=== PATIENT | female | born 1965 | race Caucasian/White ===

== ENCOUNTER 2018-07-15 07:42 | Inpatient (IN) ==
[2018-07-15] MEDS ORDERED: Metoprolol Tartrate 25 MG Tablet PO SCH (08:04)
[2018-07-15] MEDS ORDERED: Chlorhexidine Gluconate 2% 1 Pack (2 Cloths) TOPICAL SCH (08:04)
[2018-07-15] MEDS ORDERED: Chlorhexidine 4% Topical 120 APPLIC/120 ML Bottle TOPICAL SCH (08:15)
[2018-07-15] MEDS ORDERED: SODIUM CHLOR 0.9% IV.SIG SCH ×2 (09:00→12:00)
[2018-07-15] MEDS ORDERED: TRANEXAMIC ACID IV.SIG SCH ×2 (09:00→12:00)
[2018-07-15] MEDS ORDERED: Sodium Chlor 0.9% Inj 500 ML IV.SIG SCH (09:00)
[2018-07-15] MEDS ORDERED: Sodium Chlor 0.9% Inj 40 ML, Bupivacaine Liposo PF 1.3% Inj 20 ML P-ARTICULR SCH ×2 (09:00)
[2018-07-15] MEDS ORDERED: Morphine Inj 4 MG/ML Vial IV.PUSH PRN (09:43)
[2018-07-15] MEDS ORDERED: Aluminum/Magnesium/Simethacone Susp 30 ML UDC PO PRN (09:43)
[2018-07-15] MEDS ORDERED: Acetaminophen 325 MG Tablet PO PRN (09:43)
[2018-07-15] MEDS ORDERED: Post-op Orders (for Pharmacy) OTHER STA (09:43)
[2018-07-15] MEDS ORDERED: Tranexamic Acid Inj 0 MG in Sodium Chlor 0.9% Inj 100 ML IV.SIG ONE (09:43)
[2018-07-15] MEDS ORDERED: Bisacodyl 10 MG Supp RECTAL PRN (09:43)
[2018-07-15] MEDS ORDERED: Ketorolac Inj 30 MG/ML (IVP) Vial IV.PUSH SCH (10:00)
[2018-07-15] MEDS ORDERED: Propofol Inj 500 MG/50 ML Vial ONE (10:15)
[2018-07-15] MEDS: Vancomycin Inj 1,000 MG in Sodium Chlor 0.9% Inj 250 ML IV.SIG SCH ×3 (10:16→21:32)
--- NOTE | 2018-07-15 12:45 | P.OP ---
- Preoperative Diagnosis (1) Primary osteoarthritis of right hip - Postoperative Diagnosis (1) Primary osteoarthritis of right hip Date of procedure: 07/15/18 Procedure: Right total hip arthroplasty using [place] prosthesis Anesthesia: local (Exparel), spinal Surgeon: Andre Hodge MD Supervisor Molding: CAPO Morris Estimated blood loss (mL): 300 Pathology: none sent Operation and Findings: Indications and Findings: This 53-year-old woman has had pain in her left hip that has become substantially worse over the past 8 months. This has progressively limited her activities such that she has ambulation tolerance of only about 30 minutes. She has groin pain. She has difficulty abducting the hip with lateral hip pain and giving way. She has not responded to analgesics, anti-inflammatory agents, activity modification, ambulatory aids or exercise. X -rays shows some narrowing with areas of cystic change in the superior aspect of the acetabulum. An MRI shows areas of thickened cystic change in the superior aspect of the acetabulum with areas of loss of articular cartilage particularly in portion of the femoral head. Operative findings: There was tearing of the acetabular labrum anteriorly with a large flap. This was obviously chronic. In addition, there was erosion in the superior aspect of the femoral head to virtually exposed subchondral bone and to a lesser extent the acetabulum. The cystic areas were not encountered. There was good integrity superior acetabular cortex at the time of surgery. Implants: The acetabular component was a 48 mm Trident II cluster shell with a 36 mm inner diameter, 0 degree, X3 polyethylene liner. The femoral component was an Accolade II size 3 x 127 degrees. The femoral head was a 36 mm Biolox Delta ceramic head with -5 mm offset. The patient was brought to the clean air operating suite and a spinal anesthetic was administered. The patient was positioned into a lateral position with the operative hip up on a [employer] lateral positioner. The hip and lower extremity were prepped with alcohol, Hibiclens and ChloraPrep and draped in the usual manner with the hip draped free. Patient received prophylactic antibiotics preoperatively. The patient also received tranexamic acid preoperatively. An appropriate timeout procedure was carried out. An incision was made from the midportion of the greater trochanter proximally and posteriorly paralleling the fibers of the gluteus maribell. The incision was deepened through subcutaneous tissues down to the fascia maren and gluteus fascia. The gluteus fascia was then split longitudinally in line with its fibers up to the upper portion of the fascia maren. With wound towels in place, the Charnley retractor was inserted. The sciatic nerve was identified and protected throughout the procedure. Dissection was then carried down to the interval between the gluteus minimus and the piriformis. A retractor was inserted. The piriformis and obturator conjoined tendon was released from the greater trochanter and reflected off the capsule. A capsulotomy was made longitudinally along the femoral neck to the base of the femoral neck and then curved distally along the posterior aspect of the greater trochanter. The hip was internally rotated. Further release of the external rotators was carried out exposing the hip. The hip was dislocated. The femoral neck was transected at the appropriate level using the oscillating saw placement of appropriate retractors. The femoral head was removed. Preparation of the femur was initiated with a box osteotome followed by a curet to identify the medullary canal. Broaching was then initiated with the size 0 broach and went in 1 size increments up to size 3. The broach handle was removed. The femoral neck was then trimmed with a calcar planar. Attention was then directed to the acetabulum. Soft tissues were debrided from the acetabulum. Retractors were placed about the acetabulum. Reaming was then initiated with the 43 millimeter reamer and went in 1-2 mm increments up to the 48 millimeter diameter reamer. A trial reduction with the 48 millimeter trial prosthesis was carried out. When this was deemed to be appropriate, the trial prosthesis was removed. The acetabulum was irrigated and cleaned. The actual prosthesis as noted above was impacted into place and seated appropriately. A drill hole was made and sounded. An appropriate sized screw was inserted to stabilize the acetabulum further. The liner as noted above was inserted into the acetabular shell and impacted into place. Osteophytes were trimmed from the acetabulum. Local anesthetic was administered throughout the area of the acetabulum and anterior aspect of the femur. The trial neck was placed on the broach for the above-noted prosthesis. The femoral head trial was placed onto the femoral neck . A trial reduction was carried out. Adjustment was made as needed. The stability, leg length and motion were excellent. There was no pistoning. The trial prosthesis was removed. The broach was removed. The femoral component was impacted into the medullary canal of the femur after irrigation and suctioning. When this was appropriately seated a trial reduction was again carried out with the trial prosthesis. There was no pistoning. The leg length was appropriate. The stability and motion were excellent. The trial prosthesis was then removed. After cleaning and drying the trunion of the femoral component, the above-noted femoral head was impacted onto the trunnion. The hip was reduced. The stability and mobility were again checked along with leg lengths as noted above. The hip was positioned appropriately and closure commenced after the remainder of the local anesthetic was injected throughout the hip. The external rotators and capsule were repaired with #1 Vicryl interrupted transosseous sutures with a Krakw technique to reattach the external rotators and capsule to the posterior aspect of the greater trochanter. The capsule itself on the superior aspect was closed with #1 Vicryl interrupted [id number] sutures. The sciatic nerve was inspected. The fascia maren and gluteus fascia were repaired with #1 Vicryl interrupted [id number] sutures. The subcutaneous tissues were closed with 2-0 Vicryl interrupted simple sutures with buried knots. The skin was closed with a continuous subcuticular closure of 4-0 Monocryl. The wound was then approximated with Dermabond Prineo. A silver impregnated dressing was applied to the hip. A knee immobilizer was applied to the leg. The patient was transferred from the operating room to the recovery room in satisfactory condition having tolerated the procedure well. Counts are correct. Specimens: None. Estimated blood loss: 300 milliliters
--- NOTE | 2018-07-15 12:47 | P.DCO ---
- Physical Therapy Physical Therapy: Gait training Hip: Total hip, Protocol: Right, Posterior hip precautions, Progress to weight bearing Canvas Knee Splint: When in bed with 2 pillows between thighs Right Lower Extremity Range of Motion: Active ROM Left Lower Extremity Weight Bearing: Weight bearing as tolerated - Nursing Nursing: Dressing changes Dressing changes: Other (Do not remove Dermabond Prineo (the tape that is directly on the wound).Leave the Optifoam dressing in place for 7 days. After this, daily dressing changes will be done taking care to avoid injuring or removing the Dermabond Prineo.) - Certification Need for Home Health services: I have seen patient Radha Doe on 07/15/18. My clinical findings support the need for the requested home health care services because: Need for Home Health Services: Limited mobility due to disease progression, Limited ability to care for self, High risk of falls Homebound Certification: I certify that my clinical findings support that this patient is homebound because: Homebound Certification: Post-op weakness, Impaired cognitive ability/safety, Unsafe to leave home unassisted
[2018-07-15] MEDS ORDERED: *Ondansetron Inj 4 MG/2 ML Vial PERIprocedural Use ONLY ONE (13:21)
[2018-07-15] MEDS ORDERED: *morphine SULFATE 10 MG/ML PERIprocedure ONLY ONE ×2 (13:28→14:33)
[2018-07-15] MEDS ORDERED: *Promethazine Inj 25 MG/ML Vial PERIprocedural use ONLY ONE (13:44)
[2018-07-15] MEDS: Ketorolac Inj 30 MG/ML (IVP) Vial IV.PUSH SCH ×2 (14:00→20:14)
--- NOTE | 2018-07-15 14:10 | XR ---
EXAM DATE: 07/15/2018 1:59 PM EST AGE/SEX: 53 years / Female INDICATIONS: Post op right total hip replacement. CLINICAL DATA: This is the patient's initial encounter. Patient reports that signs and symptoms have been present for 1 day and indicates a pain score of Nonresponsive. MEDICAL/SURGICAL HISTORY: None. None. COMPARISON: POI, XR HIP AP AND LAT, RIGHT, 04/06/2018. . FINDINGS: Status post placement of a right hip prosthesis. There is good position and alignment of the prosthes is with the bony structures. The bony structures are grossly intact. CONCLUSION: Good position and alignment on this postoperative study. Electronically signed by: Jose A Jesus MD Board Certified Radiologist 07/15/2018 2:09 PM EST
[2018-07-15] MEDS ORDERED: fentaNYL Citrate Inj 100 MCG/2 ML Ampul ONE (14:32)
[2018-07-15] MEDS ORDERED: Promethazine 25 MG Supp RECTAL PRN (17:03)
--- NOTE | 2018-07-15 17:07 | P.CONIM ---
History of Present Illness Reason for Consult: In the recommendations on treatment of patient's hypertension and nausea Primary Care Provider: Lew Priest History of Present Illness: 53-year-old white female with a history of osteoarthritis, hypertension who had chronic right hip pain despite conservative treatment and electively underwent a right total hip arthroplasty with orthopedic surgery Dr. Hodge today. Postoperatively, patient states that her pain is controlled. She is nauseous despite having antiemetics Zofran. She has not had any active vomiting. No history of abdominal pain. She denies a history of constipation nor any previous history of blood in the stools. Review of Systems Constitutional: Reports as per HPI and Denies headache(s) Eyes: Denies blurry vision, Denies change in vision and Denies eye pain Ears, Nose, Mouth, and Throat: Denies abnormal hearing, Denies headache(s), Denies mouth pain, Denies nasal congestion, Denies neck pain and Denies sore throat Cardiovascular: Denies chest pain, Denies pedal edema, Denies palpitations and Denies dyspnea Respiratory: Denies cough and Denies dyspnea Gastrointestinal: Denies abdominal pain, Denies constipation, Denies loose stools, Reports nausea and Denies vomiting Musculoskeletal: Denies back pain, Denies myalgias, Reports arthralgias (Right hip pain), Denies neck pain and Denies numbness Skin/Breast: Denies new lesions and Denies rash Neurologic: Denies abnormal hearing, Denies headache(s), Denies focal weakness, Denies memory loss and Denies numbness Psychiatric: Denies anxiety, Denies depression and Denies memory loss Endocrine: Denies cold intolerance, Denies heat intolerance and Denies palpitations Hematologic/Lymphatic: Denies easy bleeding and Denies easy bruising PMFSH Medical History Medical History GERD (gastroesophageal reflux disease) (Chronic) Arthritis (Chronic) Back pain (Chronic) Dental crowns present (Chronic) History of hysterectomy (Chronic) Hypertension (Chronic) Joint pain (Chronic) Wears glasses (Chronic) Surgical History Surgical History History of appendectomy (Chronic) History of bilateral breast reduction surgery (Chronic) History of bladder suspension procedure (Chronic) History of cholecystectomy (Chronic) History of inguinal hernia repair (Chronic) History of knee surgery (Chronic) History of lumbar fusion (Chronic) Family History Family History Mother Hypertension ESRD (end stage renal disease) Father Diabetes mellitus Social History Social History Substance History: No History of Abuse Second Hand Smoke Exposure: Yes Smoking Status: Never smoker How Often Do You Have a Drink Containing Alcohol: Never Recent Travel in [place] within the Last 8 Weeks: No Recent Out of Country Travel within the Last 8 Weeks: No Immunization History Tetanus Immunization: >5 Years Hx Influenza Vaccine This Season: No Medications and Allergies Allergies Allergy/AdvReac Type Severity Reaction Status Date / Time latex Allergy Severe DIFFICULTY Verified 07/15/18 08:28 BREATHING, SWELLING Penicillins Allergy Severe Swelling Verified 07/15/18 08:28 Sulfa (Sulfonamide Allergy Severe Swelling Verified 07/15/18 08:28 Antibiotics) Home Medications Medication Instructions Recorded Confirmed Type acetaminophen [Acetaminophen Extra 500 mg PO Q6H PRN 07/01/18 07/15/18 History Strength] estradiol 1 mg PO DAILY 07/01/18 07/15/18 History hydrocodone-acetaminophen [[place]hr] 1 tab PO Q4H PRN 07/01/18 07/15/18 History lisinopril 2.5 mg PO DAILY 07/01/18 07/15/18 History ranitidine HCl 300 mg PO DAILY 07/01/18 07/15/18 History Active Medications: Active Medications Acetaminophen (Tylenol) 650 mg PO Q6H PRN PRN Reason: Pain Less Than 3 On Scale Hydrocodone Bitart/Acetaminophen ([place] 7.5/325) 1 tab PO Q4H PRN PRN Reason: PAIN SCALE 4 TO 6 MODERATE Hydrocodone Bitart/Acetaminophen ([place] 7.5/325) 2 tab PO Q6H PRN PRN Reason: PAIN SCALE 7 TO 10 SEVERE Al Hydrox/Mg Hydrox/Simethicone (Mag-Al Plus Susp Liq) 30 ml PO Q6H PRN PRN Reason: INDIGESTION Al Hydroxide/Mg Hydroxide (Milk Of Magnesia Liq) 30 ml PO BID PRN PRN Reason: Mild Constipation Aprepitant (Emend) 40 mg PO DATA SUPPORT ANALYST [facility] Stop: 07/18/18 08:59 Last Admin: 07/15/18 08:52 Dose: 40 mg Aspirin (Aspirin Chew) 81 mg PO BID [facility] Bisacodyl (Dulcolax Supp) 10 mg RECTAL DAILY PRN PRN Reason: SEVERE CONSITIPATION Chlorhexidine Gluconate (Chlorhexidine 2% Cloth) 3 pack TOPICAL DATA SUPPORT ANALYST [facility] Stop: 07/15/18 23:59 Last Admin: 12/27/18 08:15 Dose: 3 pack Chlorhexidine Gluconate (Hibiclens 4% Topical) 1 applicatio TOPICAL ONCE [facility] Stop: 07/19/18 08:14 Last Admin: 07/15/18 08:30 Dose: 1 applicatio Diphenhydramine HCl (Benadryl) 25 mg PO Q6H PRN PRN Reason: ITCHING Estradiol (Estrace) 1 mg PO DAILY [facility] Famotidine (Pepcid) 20 mg PO BID [facility] Lactated Ringer's (Lr 1000 Ml Inj) 1,000 mls @ 30 mls/hr IV.SIG .Q24H [facility] Stop: 07/16/18 08:14 Last Admin: 07/15/18 08:43 Dose: 30 mls/hr Sodium Chloride (Ns Inj) 500 mls @ 30 mls/hr IV.SIG .[id number] [facility] Stop: 07/16/18 01:39 Last Admin: 07/15/18 08:43 Dose: Not Given Tranexamic Acid 794 mg/ Sodium (Chloride) 107.94 mls @ 200 mls/hr IV.SIG ONCE [facility] Stop: 07/15/18 18:00 Vancomycin HCl 1,000 mg/ (Sodium Chloride) 250 mls @ 250 mls/hr IV.SIG DATA SUPPORT ANALYST [facility] Stop: 07/18/18 08:10 Last Infusion: 07/15/18 11:37 Dose: Infused Lactated Ringer's (Lr 1000 Ml Inj) 1,000 mls @ 80 mls/hr IV.CONT .[id number] [facility] Last Admin: 07/15/18 13:30 Dose: 80 mls/hr Vancomycin HCl 1,000 mg/ (Sodium Chloride) 250 mls @ 250 mls/hr IV.SIG Q12H [facility] Stop: 07/16/18 10:59 Ketorolac Tromethamine (Toradol Inj) 15 mg IV.PUSH Q6H [facility] Stop: 07/17/18 08:01 Last Admin: 07/15/18 14:00 Dose: 15 mg Lactulose (Lactulose Liq) 30 ml PO DAILY PRN PRN Reason: SEVERE CONSITIPATION Lisinopril (Prinivil) 2.5 mg PO DAILY [facility] Metoprolol Tartrate (Lopressor) 25 mg PO DATA SUPPORT ANALYST [facility] Stop: 07/15/18 23:59 Last Admin: 07/15/18 08:44 Dose: Not Given Miscellaneous Information ([facility]) 1 each OTHER UNSCH PRN PRN Reason: SEE LABEL COMMENTS Stop: 07/16/18 13:07 Morphine Sulfate (Morphine Inj) 2 mg IV.PUSH Q3H PRN PRN Reason: BREAKTHROUGH PAIN Ondansetron HCl (Zofran Odt) 4 mg PO Q6H PRN PRN Reason: NAUSEA OR VOMITING Last Admin: 07/15/18 16:42 Dose: 4 mg Povidone Iodine (Betadine 5% Antisepsis Kit) 1 applicatio EACH NARE DATA SUPPORT ANALYST [facility] Stop: 07/15/18 23:59 Last Admin: 07/15/18 08:43 Dose: 1 applicatio Senna/Docusate Sodium (Anuradha-Colace) 1 tab PO BID [facility] Sennosides (Senokot) 17.2 mg PO BID PRN PRN Reason: Moderate Constipation Sodium Chloride (Ns Flush) 2 ml IV.FLUSH BID [facility] Sodium Chloride (Ns Flush) 2 ml IV.FLUSH PRN PRN PRN Reason: FLUSH AFTER USING IV ACCESS Zolpidem Tartrate (Ambien) 5 mg PO HS PRN PRN Reason: INSOMNIA Physical Exam Vital signs: Last Vital Signs Temp 97.7 F 07/15/18 16:00 Pulse 76 07/15/18 16:00 Resp 18 07/15/18 16:00 BP 106/84 07/15/18 16:00 Pulse Ox 97 07/15/18 16:00 Intake & Output 07/13/18 07/14/18 07/15/18 07/16/18 06:59 06:59 06:59 06:59 Intake Total 999.94 / 999.94 Output Total 300 / 300 Balance 699.94 / 699.94 Weight 79.4 kg Narrative: GENERAL: Well-nourished well-developed white female no acute distress SKIN: Warm and dry. HEAD: Atraumatic. Normocephalic. EYES: Pupils equal and round. No scleral icterus. No injection or drainage. ENT: No nasal bleeding or discharge. Mucous membranes pink and moist. NECK: Trachea midline. No JVD. CARDIOVASCULAR: Regular rate and rhythm. RESPIRATORY: No accessory muscle use. Clear to auscultation. Breath sounds equal bilaterally. GASTROINTESTINAL: Abdomen soft, non-tender, nondistended. Normoactive bowel sounds MUSCULOSKELETAL: Right lower extremity immobilizer, right hip bandage clean dry and intact, ice pack in place NEUROLOGICAL: Awake and alert to person place and time. No obvious cranial nerve deficits. Motor grossly within normal limits. Normal speech. PSYCHIATRIC: Appropriate mood and affect; insight and judgment normal. Results Imaging Impressions Hip X-Ray 07/15/18 09:40 CONCLUSION: Good position and alignment on this postoperative study. ABG Impressions Hip X-Ray 07/15/18 09:40 CONCLUSION: Good position and alignment on this postoperative study. Assessment and Plan (1) Status post total replacement of right hip: Code(s): Z96.641 - Presence of right artificial hip joint Status: Acute Plan 53-year-old white female with Status post right total hip arthroplasty -continue postoperative care, physical therapy, pain control per orthopedic surgery Hypertension history, chronicresume home lisinopril;current blood pressure controlled, parameters will be written and no adjustment of the dose as needed. Postoperative nauseaantiemetic protocol given with Zofran and Phenergan if needed. GERDcontinue home H2 mary DVT prophylaxisper orthopedic surgery aspirin. Thank you for this consultation.
[2018-07-15] MEDS: Senna/Docusate Sodium 8.6/50 MG Tablet PO SCH (20:15)
[2018-07-15] MEDS ORDERED: Zolpidem Tartrate 5 MG Tablet PO PRN (21:00)
[2018-07-16] MEDS: Ketorolac Inj 30 MG/ML (IVP) Vial IV.PUSH SCH ×4 (00:32→14:06)
[2018-07-16 04:16] LABS: Hematocrit 34.9 % (35.0-46.0); Hemoglobin 11.6 gm/dL (11.6-15.3)
--- NOTE | 2018-07-16 06:02 | P.PNOP ---
Subjective Interval history: Postop day #1 She is doing well. She has minimal complaints related to the hip at this time. She had some vertigo initially but has been able to walk since then. She has been up to the bathroom without difficulty. Physical therapy reports that vertigo precluded ambulation. Physical Exam Vital signs: Vital Signs 07/15/18 08:20 07/15/18 13:09 07/15/18 13:15 Temperature 97.8 F 97.5 F L Pulse Rate 68 66 68 Respiratory Rate 20 16 16 Blood Pressure 129/80 91/53 L 101/69 Pulse Oximetry 100 100 97 07/15/18 13:30 07/15/18 13:45 07/15/18 14:00 Temperature Pulse Rate 62 62 60 Respiratory Rate 16 16 16 Blood Pressure 106/69 102/64 103/61 Pulse Oximetry 99 97 97 07/15/18 14:15 07/15/18 16:00 07/15/18 19:00 Temperature 97.7 F Pulse Rate 60 76 Respiratory Rate 16 18 18 Blood Pressure 103/65 106/84 Pulse Oximetry 99 97 07/15/18 19:02 07/15/18 20:44 07/15/18 20:45 Temperature 97.2 F L Pulse Rate 65 Respiratory Rate 18 18 18 Blood Pressure 103/57 L Pulse Oximetry 96 07/15/18 23:11 07/16/18 00:53 07/16/18 00:58 Temperature 97.5 F L Pulse Rate 69 Respiratory Rate 18 18 17 Blood Pressure 95/64 L Pulse Oximetry 97 07/16/18 03:19 Temperature 98.2 F Pulse Rate 68 Respiratory Rate 18 Blood Pressure 106/58 L Pulse Oximetry 97 Intake & Output 07/15/18 07/15/18 07/16/18 06:59 18:59 06:59 Intake Total 1719.94 / 1719.94 1250 / 1250 Output Total 300 / 300 Balance 1419.94 / 1419.94 1250 / 1250 Weight 79.4 kg Intake: IV 357.94 / 357.94 1250 / 1250 LR 1000 mL Inj 1,000 ML @ 80 1000 / 1000 mls/hr IV.CONT .[id number] [facility] Rx# :[id number] Cyklokapron Inj 794 MG In NS 107.94 / 107.94 Inj 100 ML @ 200 mls/hr IV.SIG ONCE [facility] Rx#:[id number] Vancomycin Inj 1,000 MG In NS 250 / 250 250 / 250 Inj 250 ML @ 250 mls/hr IV.SIG Q12H [facility] Rx#:[id number] Oral 720 / 720 Anesthesia Amount 642 / 642 Output: Estimated Blood Loss 300 / 300 Other: # Voids 2 Date of Last Bowel Movement 07/14/18 07/14/18 Weight On Admission 79.4 kg Narrative: She is resting comfortably, supine in bed. The dressing is dry and intact. Her neurovascular status is intact. Results - Labs CBC & Chem 7: 07/16/18 03:44 Laboratory Results - last 24 hr 07/15/18 07/16/18 08:30 03:44 Hgb 11.6 Hct 34.9 L Blood Type O Positive Blood Type Recheck Required Antibody Screen Negative - Imaging Impressions Hip X-Ray 07/15/18 09:40 CONCLUSION: Good position and alignment on this postoperative study. - Procedures Right total hip arthroplasty using [place] prosthesis on 07/15/2018. Assessment and Plan - Ortho Post Op Day # 1 - Problem List (1) Status post total replacement of right hip Code(s): Z96.641 - Presence of right artificial hip joint Status: Acute Onset Date: ~07/15/18 - Assessment and Plan Condition: Good. Orthopedically stable. DVT prophylaxis: TEDs, aspirin, sequentials. Discharge plans: Home with home health care. An appointment was scheduled through the office. Prescriptions: [place] 7.5/325; Patient is having significant pain caused by total hip replacement which will last more than 3 days. Trial of Tylenol has not helped. I believe that it is medically necessary to treat patients pain because it is affecting patients ability to participate in postoperative rehabilitation and perform activities of daily living in a comfortable and efficient manner. I have checked the [facility] database prior to completing the prescription.
--- NOTE | 2018-07-16 06:33 | P.DS ---
Date of admission: 07/15/18 09:39 Primary care physician: Lew Priest Attending physician on discharge: Andre Hodge Anticipated date of discharge: 07/16/18 Brief History from admission: This 53-year-old woman has had several months worth of progressive pain in her right hip. She has not responded to conservative measures including anti- inflammatory agents, analgesics, exercise as detailed in the history and physical examination. She has difficulty with activities of daily living including stair climbing, standing from a seated position and other activities. Her ambulation tolerance was significantly limited. Physical findings showed limited range of motion in the hip with tenderness on motion. She also had gait. Radiographic findings showed some cystic change in the superior aspect of the acetabulum and other degenerative changes. In addition, the MRI showed articular cartilage disruption and cystic change in the dome of the acetabulum. DS: Diagnosis - Discharge Diagnosis (1) Status post total replacement of right hip Status: Acute Diagnosis: Principal (2) Primary osteoarthritis of right hip Status: Chronic Diagnosis: Principal DS: Medications - Discharge Medications Prescriptions: hydrocodone-acetaminophen 1 tab PO Q4H PRN 7 Days #42 tab PRN Reason: Pain, Severe DS: Summary Hospital Course: The patient was admitted as noted above. The above noted operative procedure was carried out that day. Preoperatively prophylactic antibiotics were administered Ancef according to protocol. These were continued postoperatively. The patient also received tranexamic acid to help with hemostasis according to protocol. In the postanesthesia care unit mechanical methods of DVT prophylaxis in the form of RANDALL stockings and sequentials were initiated. Physical therapy was initiated on the day of surgery. On postoperative day #1 physical therapy continued. DVT prophylaxis with aspirin 81 mg was initiated at this time. The patient continued physical therapy throughout the hospitalization. The distance walked and range of motion improved throughout the hospitalization. The patient was discharged on postoperative day 1 with the disposition being to home with home health care. An appointment for follow-up was made prior to admission. - Time Spent with Patient Total time spent providing and/or coordinating discharge services: Less than 30 minutes - Quality: VTE Deep Vein Thrombosis/Pulmonary Embolism Present on Admission: No Exam Vital signs: Vital Signs 07/15/18 08:20 07/15/18 13:09 07/15/18 13:15 Temperature 97.8 F 97.5 F L Pulse Rate 68 66 68 Respiratory Rate 20 16 16 Blood Pressure 129/80 91/53 L 101/69 Pulse Oximetry 100 100 97 07/15/18 13:30 07/15/18 13:45 07/15/18 14:00 Temperature Pulse Rate 62 62 60 Respiratory Rate 16 16 16 Blood Pressure 106/69 102/64 103/61 Pulse Oximetry 99 97 97 07/15/18 14:15 07/15/18 16:00 07/15/18 19:00 Temperature 97.7 F Pulse Rate 60 76 Respiratory Rate 16 18 18 Blood Pressure 103/65 106/84 Pulse Oximetry 99 97 07/15/18 19:02 07/15/18 20:44 07/15/18 20:45 Temperature 97.2 F L Pulse Rate 65 Respiratory Rate 18 18 18 Blood Pressure 103/57 L Pulse Oximetry 96 07/15/18 23:11 07/16/18 00:53 07/16/18 00:58 Temperature 97.5 F L Pulse Rate 69 Respiratory Rate 18 18 17 Blood Pressure 95/64 L Pulse Oximetry 97 07/16/18 03:19 Temperature 98.2 F Pulse Rate 68 Respiratory Rate 18 Blood Pressure 106/58 L Pulse Oximetry 97 Intake & Output 07/15/18 07/15/18 07/16/18 06:59 18:59 06:59 Intake Total 1719.94 / 1719.94 1730 / 1730 Output Total 300 / 300 Balance 1419.94 / 1419.94 1730 / 1730 Weight 79.4 kg 79.4 kg Intake: IV 357.94 / 357.94 1250 / 1250 LR 1000 mL Inj 1,000 ML @ 80 1000 / 1000 mls/hr IV.CONT .[id number] MELA Rx# :[id number] Cyklokapron Inj 794 MG In NS 107.94 / 107.94 Inj 100 ML @ 200 mls/hr IV.SIG ONCE MELA Rx#:[id number] Vancomycin Inj 1,000 MG In NS 250 / 250 250 / 250 Inj 250 ML @ 250 mls/hr IV.SIG Q12H MELA Rx#:[id number] Oral 720 / 720 480 / 480 Anesthesia Amount 642 / 642 Output: Estimated Blood Loss 300 / 300 Other: # Voids 2 2 Date of Last Bowel Movement 07/14/18 07/14/18 # Bowel Movements 0 Weight On Admission 79.4 kg Narrative: She is resting comfortably, supine in bed. The dressing is dry and intact. Her neurovascular status is intact. Results Procedures completed during hospitalization: Right total hip arthroplasty using Calvin prosthesis on 07/15/2018. Labs on day of discharge: Labs from last 24 hours 07/16/18 07/15/18 03:44 08:30 Hgb 11.6 Hct 34.9 L Blood Type O Positive Blood Type Recheck Required Antibody Screen Negative - Impressions ITS Impressions Hip X-Ray 07/15/18 09:40 CONCLUSION: Good position and alignment on this postoperative study. Discharge Plan - Discharge Disposition Patient Disposition: /[facility] - Discharge Condition Condition: Stable - Discharge Order Discharge Orders: Discharge Order (Routine); Ordered 07/16/18 Ordered By: Andre Hodge - Discharge Details Anticipated Discharge Date: 07/16/18 - Physicians Team Primary Care Provider: Lew Priest Attending Provider: Andre Hodge Other Providers: Jeb Erickson DO ; [facility] - Rxs /Orders / Referrals /Forms Prescriptions: New hydrocodone-acetaminophen 7.5-325 mg Tablet 1 tab PO Q4H PRN (Reason: Pain, Severe) 7 Days Qty: 42 RF: 0 Continue acetaminophen [Acetaminophen Extra Strength] 500 mg Tablet 500 mg PO Q6H PRN (Reason: Pain) estradiol 1 mg Tablet 1 mg PO DAILY lisinopril 2.5 mg Tablet 2.5 mg PO DAILY ranitidine HCl 300 mg Tablet 300 mg PO DAILY Discontinued hydrocodone-acetaminophen [[place]] 5-325 mg Tablet 1 tab PO Q4H PRN (Reason: Pain) Referrals: Andre Hodge MD [Physician] - See Instructions Lew Priest MD [Primary Care Provider] - See Instructions - Discharge Instructions Patient Printed Instructions: Hydrocodone/Acetaminophen (By mouth), Total Hip Replacement (DC) Additional Instructions: Rx for [place] 7.5/325mg (42) given at time of discharge. Take medications as prescribed. Follow up with Dr. Hodge as previously discussed.
[2018-07-16] MEDS: Senna/Docusate Sodium 8.6/50 MG Tablet PO SCH (08:55)
[2018-07-16] MEDS ORDERED: Famotidine 20 MG Tablet PO SCH (09:00)
[2018-07-16] MEDS ORDERED: Lisinopril 5 MG Tablet PO SCH (09:00)
[2018-07-16] MEDS ORDERED: Estradiol 1 MG Tablet PO SCH (09:00)
[2018-07-16 09:16] VITALS: RESP 16
[2018-07-16] MEDS: Vancomycin Inj 1,000 MG in Sodium Chlor 0.9% Inj 250 ML IV.SIG SCH (10:00)
[2018-07-16 13:59] VITALS: BP 115/56; PULSE 79; TEMP 98.2; O2SAT 98
== END 2018-07-16 14:15 | disposition home health service (06) | DRG 470 ==
LOC: HSDC 07:42 → HSDI 09:39 → EDSTATUS 10:00 → N06 14:58
PROVIDERS: ADMIT Orthopaedic Surgery; ATTEND Orthopaedic Surgery
CPT/HCPCS: 73502; 85014; 85018; 86850; 86900; 86901; 94150; 97110; 97116; 97150; 97163; 97166; C1776; C9290; J1580; J1885; J2270; J2405; J2550; J2704; J3010; J3370; J7050; J7120; J8501; L1830